=== PATIENT | female | born 1930 | race Caucasian/White ===

== ENCOUNTER 2016-04-30 10:46 | Observation (INO) | payer MEDICARE, MEDICAID ==
[2016-04-30] MEDS ORDERED: NS 1,000 ML IV ONE ×3 (11:00→13:26)
[2016-04-30] MEDS ORDERED: ONDANSETRON HCL 4 MG/2 ML VIAL IV ONE (11:00)
[2016-04-30] MEDS ORDERED: Pharmacy Review for Metformin - IV Contrast Given SCH (11:00)
--- NOTE | 2016-04-30 11:03 | EDPRACDOC ---
- General Information Chief Complaint: Abdominal Pain Stated Complaint: ABD. PAIN Time Seen by Provider: 04/30/16 10:57 Home Medications: Home Medications Furosemide [Lasix] 80 mg PO BID 03/13/12 Glipizide Xl [Glucotrol Xl] 2.5 mg PO DAILY 03/13/12 Metoprolol Tartrate [Lopressor] 12.5 mg PO BID 03/13/12 Dexlansoprazole [Dexilant] 60 mg PO DAILY 03/12/13 POTASSIUM CHLORIDE Tablet [K-DUR 20 mEq Tablet*] 20 meq PO DAILY 11/09/13 Pravastatin [Pravachol] 20 mg PO HS 05/16/14 Cyanocobalamin (Vitamin B-12) [Vitamin B-12] 1,500 mcg PO DAILY 08/04/14 [place]-3 Fatty Acids/Fish Oil [Fish Oil 300 mg Softgel] 1,200 mg PO BID 08/04/14 Pregabalin [Lyrica] 300 mg PO QHS 05/09/15 Calcium Carb & Cit/Vitamin D3 [Calcium + D3 ER Tab (600mg/500IU)] 2 tab PO DAILY 05/15/15 Nitroglycerin [Nitrostat] 0.4 mg SL Q5MX3 PRN 05/15/15 Aspirin 325 mg PO DAILY 06/23/15 Levothyroxine [Synthroid, Levoxyl] 88 mcg PO DAILY 02/04/16 Ciprofloxacin HCl [Cipro] 500 mg PO BID #20 tab 04/26/16 Hydrocodone Bit/Acetaminophen [Hydrocodon-Acetaminophen 5-325] 1 tab PO Q6H PRN #14 tab 04/26/16 Ibuprofen 200 - 400 mg PO .PRN PRN 04/26/16 Benzonatate [Tessalon Perle] 100 mg PO Q8H PRN 04/28/16 Calcium Carb/Mag Ox/Zinc Sulf [Fwteixh-Gjlitnlox-Sdzz Tablet] 1 tab PO DAILY Digoxin [Lanoxin, Digitek] 0.0625 mg PO DAILY 04/28/16 Olopatadine HCl [Patanol] 2 drops OU BID #5 ml 04/28/16 Allergies/Adverse Reactions: Allergies Allergy/AdvReac Type Severity Reaction Status Date / Time Penicillins Allergy Severe RASH Verified 04/28/16 13:39 - History of Present Illness HPI: PATIENT HAS BEEN DIAGNOSED WITH CHRONIC ABDOMINAL PAIN. PATIENT HAS BEEN SEEN IN THE ER X2 FOR THE SAME PAIN. NEIGHBORS STATE PATIENT HAS HAD NAUSEA AND VOMITING AND FATIGUE OVER LAST 2 DAYS. PATIENT RECENTLY DIAGNOSED WITH UTI AND PLACED ON ANTIBIOTICS. Pain Location: Reports: LUQ, LLQ Pain Context: Reports: Spontaneous Pain Severity: Mild Pain Quality: Reports: Aching Pain Radiation: Reports: No Radiation Female Associated Signs & Symptoms: Reports: Nausea, Vomiting. Denies: Diarrhea Oral Intake: Normal Urinary Output: Normal - Treatment Prior to ED Arrival Reported Medications/Treatment [facility] Treatment BLS IV No Comment cbg 100 ED Past Medical History - History Reviewed Yes Nurses notes reviewed and agree except as marked Travel Outside of [place] in the Last 3 Months?: No - Patient Medical History Cardiac History: Reports: Atrial Fibrillation, Hypertension, Congestive Heart Failure, Hypercholesterolemia, Pacemaker Respiratory History: Reports: Pneumonia, Pulmonary Embolism (in past) GI/ History: Reports: Gastroesophageal Reflux Musculoskeletal History: Reports: Arthritis, Rheumatoid Arthritis Psychological History: Reports: Anxiety. Denies: Depression, Substance Use Disorder Systemic History: Reports: Cancer (CERVICAL), Diabetes Surgical History: Reports: Cholecystectomy, Hysterectomy, Tonsillectomy/ Adnoidectomy, Other (IVC filter) - Family Medical History Reports: Hypertension (sister), Diabetes (father), Cancer (son), Cardiac Disorders (mother). Denies: Stroke - Social Medical History Smoking Status: Never smoker Social History: Denies: Substance Use Disorder Lives With: Alone Lives In: Home EDM Review of Systems - Review of Systems ROS Negative Except as Marked: Yes All systems reviewed and were negative except as marked Constitutional: No Symptoms Reported. negative: Fever, Chills, Weakness, Fatigue, Loss of Appetite Eyes: No Symptoms Reported. negative: Redness, Blurred Vision, Double Vision, Discharge, Pain, Light Sensitive, Photophobia Ears: No Symptoms Reported. negative: Pain, Hearing Loss, Drainage, Ear Pulling Throat: No Symptoms Reported. negative: Pain, Swelling Nose: No Symptoms Reported. negative: Congestion, Bleeding, Discharge, Injection, Swelling, Deformity, Ecchymosis, Tender, Abrasion, Laceration Mouth: No Symptoms Reported. negative: Pain, Drooling Respiratory: No Symptoms Reported. negative: Cough, Brassy Cough, Barky Cough, Shortness of Breath, Wheezing, Hemoptysis Cardiovascular: No Symptoms Reported. negative: Chest Pain, Palpitations, Syncope, Edema, Orthopnea, PND, Skin Mottling, Cyanosis Gastrointestinal: Nausea, Pain, Vomiting. negative: Constipation, Diarrhea, Formula Intolerance, Melena Genitourinary: No Symptoms Reported. negative: Dysuria, Hematuria, Frequency, Discharge, Bleeding, Testicular Pain, Neurological: No Symptoms Reported. negative: Headache, Dizziness, Seizure, Numbness, Weakness, Speech Difficulty, Gait Difficulty Musculoskeletal: No Symptoms Reported. negative: Neck, Chestwall, Ribs, Back, Shoulder, Arm, Elbow, Forearm, Wrist, Hand, Pelvis, Hip, Femur, Knee, Leg, Ankle , Foot Integumentary: No Symptoms Reported. negative: Itching, Rash, Bruising, Wound Allergic/Immunologic: No Symptoms Reported. negative: Hives, Itching Hematologic: No Symptoms Reported. negative: Lymphadenopathy, Easy Bruising, Easy Bleeding Endocrine: No Symptoms Reported. negative: Weight Gain, Weight Loss Psychiatric: No Symptoms Reported. negative: Anxiety, Depression, Hallucinations, Insomnia, Suicidal - Physical Exam Constitutional: Alert (Awake), Distress (MILD) Oriented to: Time, Person, Place Last recorded Vital Signs: Last Vital Signs Temp 98.2 F 04/30/16 11:07 Pulse 73 04/30/16 11:07 Resp 18 04/30/16 11:13 BP 139/81 04/30/16 11:07 Pulse Ox 94 04/30/16 11:07 Oxygen Pulse Oxygen Saturation 94 O2 Device Room Air Oxygen Flow Rate Fraction of Inspired Oxygen ( FIO2) - HEENT Head: Normal ( normocephalic) Eye Exam: Normal (PERRL, EOMI, Sclera white) Oropharynx: Normal (Pharynx:Moist without exudate,Gums-no swelling) Tympanic Membrane: Normal ENT EAC: Normal TMJ: Normal Nose: No Symptoms Reported (septum midline) Neck: Normal (FROM, trachea at midline) - Respiratory/Cardiovascular Respiratory: Normal - CTA (BBS clear to auscultation without adventitious sounds ) Cardiovascular: Normal (RRR without murmur, gallop or rub) Respiratory/Cardiovascular Comment: TENDER LEFT CHEST WALL - GI Auscultation: Normal (NABS) Palpation: Normal (Soft,No rebound or guarding, non distended) Tenderness: LUQ August's Sign: Negative - Bladder: Normal - Musculoskeletal Back: Normal (Non-Tender) Extremities: Normal (Normal tone, Pulses 2+ No cyanosis or edema, FROM) - Integumentary Skin: Normal, Warm, Dry Lymphatics: Normal (no adenopathy) - Neurologic Memory Impaired: Normal Motor Function: Normal (Normal tone, Pulses 2+ No cyanosis or edema, FROM) Cranial Nerve: Normal (CN II-X11 intact sensation, strength 5/5) Cerebellar: Normal Mood Description: Normal Perception: Normal - Results 04/30/16 11:22 04/30/16 11:22 WBC 4.8 xk/uL (3.8-10.8) 04/30/16 11:22 RBC 4.38 xM/uL (4.20-5.40) 04/30/16 11:22 Hgb 12.1 g/dL (12.0-16.0) 04/30/16 11:22 Hct 36.3 % (36-47) 04/30/16 11:22 MCV 83 fL (81-99) 04/30/16 11:22 MCH 27.7 pg (27-32) 04/30/16 11:22 MCHC 33.4 g/dl (33-36) 04/30/16 11:22 RDW 15.7 % (11.5-14.5) H 04/30/16 11:22 Plt Count 180 xk/uL (130-400) 04/30/16 11:22 MPV 8.6 fL (7.4-10.4) 04/30/16 11:22 Neut % (Auto) 72.7 % (45-76) 04/30/16 11:22 Lymph % (Auto) 16.6 % (17-44) L 04/30/16 11:22 [place] % (Auto) 8.7 % (3-10) 04/30/16 11:22 Eos % (Auto) 0.9 % (0-5) 04/30/16 11:22 Baso % (Auto) 1.1 % (0-2) 04/30/16 11:22 Absolute Neuts (auto) 3.46 xk/uL (1.7-8.2) 04/30/16 11:22 Absolute Lymphs (auto) 0.77 xk/uL (0.65-4.75) 04/30/16 11:22 Sodium 147 mEq/L (137-146) H 04/30/16 11:22 Potassium 3.5 mEq/L (3.5-5.1) 04/30/16 11:22 Chloride 113 mEq/L (98-107) H 04/30/16 11:22 Carbon Dioxide 21 mMOL/L (22-33) L 04/30/16 11:22 Anion Gap 17 mEq/L (8-16) H 04/30/16 11:22 BUN 16 MG/DL (7-17) 04/30/16 11:22 Creatinine 0.70 MG/DL (0.52-1.04) 04/30/16 11:22 Estimated GFR (MDRD) > 60 mL/min (>=60) 04/30/16 11:22 Glucose 116 MG/DL (70-99) H 04/30/16 11:22 Calculated Osmolality 284 MOs/Kg (270-290) 04/30/16 11:22 Calcium 9.2 MG/DL (8.4-10.2) 04/30/16 11:22 Corrected Calcium 9.6 MG/DL (8.4-10.2) 04/30/16 11:22 Total Bilirubin 1.1 MG/DL (0.2-1.3) 04/30/16 11:22 AST 40 IU/L (14-36) H 04/30/16 11:22 ALT 33 IU/L (9-52) 04/30/16 11:22 Alkaline Phosphatase 97 IU/L (55-165) 04/30/16 11:22 Total Protein 6.9 G/DL (6.3-8.2) 04/30/16 11:22 Albumin 3.6 G/DL (3.5-5.0) 04/30/16 11:22 Lipase 136 U/L (23-300) 04/30/16 11:22 Urine Color Yellow 04/30/16 11:10 Urine Clarity Clear 04/30/16 11:10 Urine pH 7.0 (5.0-8.0) 04/30/16 11:10 Ur Specific [place] 1.005 (1.003-1.035) 04/30/16 11:10 Urine Protein 1+ (NEG/TRACE) H 04/30/16 11:10 Urine Glucose (UA) Neg (NEGATIVE) 04/30/16 11:10 Urine Ketones 1+ (NEGATIVE) H 04/30/16 11:10 Urine Occult Blood Neg (NEG/TRACE) 04/30/16 11:10 Urine Nitrite Neg (NEGATIVE) 04/30/16 11:10 Urine Bilirubin Neg (NEGATIVE) 04/30/16 11:10 Urine Urobilinogen 8 MG/DL (0-1) H 04/30/16 11:10 Ur Leukocyte Esterase Neg (NEGATIVE) 04/30/16 11:10 Urine RBC 0-2 (0-5) 04/30/16 11:10 Urine WBC 0-2 (0-5) 04/30/16 11:10 Ur Epithelial Cells Occ 04/30/16 11:10 Urine Bacteria Few (NEG/FEW) 04/30/16 11:10 Urine Mucus Sm amt (NEG/OCC) 04/30/16 11:10 Digoxin 0.50 NG/ML (0.8-2.00) L 04/30/16 11:22 Microbiology 04/30/16 11:39 Influenza Type A Antigen Screen - Final N/P - Naso/Pharyngeal NEGATIVE Please note: A NEGATIVE result does not exclude an influenza virus infection. It is a presumptive result and, if required, confirmation should be done using either a virus culture or an FDA-cleared influenza A&B molecular assay. ("NORMAL" value = "NEGATIVE".) Influenza Type B Antigen Screen - Final NEGATIVE Please note: A NEGATIVE result does not exclude an influenza virus infection. It is a presumptive result and, if required, confirmation should be done using either a virus culture or an FDA-cleared influenza A&B molecular assay. ("NORMAL" value = "NEGATIVE".) Lab Results 04/30/16 04/30/16 04/30/16 11:22 11:22 11:22 WBC 4.8 RBC 4.38 Hgb 12.1 Hct 36.3 MCV 83 MCH 27.7 MCHC 33.4 RDW 15.7 H Plt Count 180 MPV 8.6 Neut % (Auto) 72.7 Lymph % (Auto) 16.6 L [place] % (Auto) 8.7 Eos % (Auto) 0.9 Baso % (Auto) 1.1 Absolute Neuts (auto) 3.46 Absolute Lymphs (auto) 0.77 Sodium 147 H Potassium 3.5 Chloride 113 H Carbon Dioxide 21 L Anion Gap 17 H BUN 16 Creatinine 0.70 Estimated GFR (MDRD) > 60 Glucose 116 H Calculated Osmolality 284 Calcium 9.2 Corrected Calcium 9.6 Total Bilirubin 1.1 AST 40 H ALT 33 Alkaline Phosphatase 97 Total Protein 6.9 Albumin 3.6 Lipase 136 Urine Color Urine Clarity Urine pH Ur Specific [place] Urine Protein Urine Glucose (UA) Urine Ketones Urine Occult Blood Urine Nitrite Urine Bilirubin Urine Urobilinogen Ur Leukocyte Esterase Urine RBC Urine WBC Ur Epithelial Cells Urine Bacteria Urine Mucus Digoxin 0.50 L 04/30/16 11:10 WBC RBC Hgb Hct MCV MCH MCHC RDW Plt Count MPV Neut % (Auto) Lymph % (Auto) [place] % (Auto) Eos % (Auto) Baso % (Auto) Absolute Neuts (auto) Absolute Lymphs (auto) Sodium Potassium Chloride Carbon Dioxide Anion Gap BUN Creatinine Estimated GFR (MDRD) Glucose Calculated Osmolality Calcium Corrected Calcium Total Bilirubin AST ALT Alkaline Phosphatase Total Protein Albumin Lipase Urine Color Yellow Urine Clarity Clear Urine pH 7.0 Ur Specific [place] 1.005 Urine Protein 1+ H Urine Glucose (UA) Neg Urine Ketones 1+ H Urine Occult Blood Neg Urine Nitrite Neg Urine Bilirubin Neg Urine Urobilinogen 8 H Ur Leukocyte Esterase Neg Urine RBC 0-2 Urine WBC 0-2 Ur Epithelial Cells Occ Urine Bacteria Few Urine Mucus Sm amt Digoxin - Departure Yes I personally saw and evaluated the patient. Disposition: Admit IP To This Hospital Condition: Fair Final Diagnosis: Failure of outpatient treatment Nausea & vomiting Qualifiers: Vomiting type: unspecified Vomiting Intractability: intractable Qualified Code( s): R11.2 - Nausea with vomiting, unspecified Instructions: Acute Abdominal Pain (ED), Acute Nausea and Vomiting (ED) Education/Counseling Given To: Patient, Family Member Education/Counseling Given Regarding: Diagnosis, Treatment, Prognosis Decision to Admit Time: 13:05 Decision to admit date: 04/30/16 Decision to admit: from ED - Physician Consulted Hospitalist Time Called: 13:06 Provider Called: Michael Zhang Time Pricing Coordinator Returned Call: 13:06
[2016-04-30 11:28] LABS: LEUKOCYTES/URINE NEG (NEGATIVE); NITRITE/URINE NEG (NEGATIVE); RBC/URINE 0-2 (0-5); URINE OCCULT BLOOD NEG (NEG/TRACE); WBC/URINE 0-2 (0-5)
[2016-04-30 11:29] LABS: AUTOMATED BASOPHIL 1.1 % (0-2); AUTOMATED EOSINOPHIL 0.9 % (0-5); AUTOMATED LYMPH 16.6 % (17-44); AUTOMATED MONOCYTE 8.7 % (3-10); AUTOMATED NEUTROPHIL 72.7 % (45-76); MPV 8.6 fL (7.4-10.4)
[2016-04-30 11:38] LABS: BLOOD UREA NITROGEN 16 MG/DL (7-17); CALC CORRECTED 9.6 MG/DL (8.4-10.2); CALCIUM 9.2 MG/DL (8.4-10.2); CALCULATED OSMOLALITY 284 MOs/Kg (270-290); CHLORIDE 113 mEq/L (98-107); GLUCOSE 116 MG/DL (70-99); SODIUM LEVEL 147 mEq/L (137-146); TOTAL PROTEIN 6.9 G/DL (6.3-8.2)
--- NOTE | 2016-04-30 12:20 | DIRPT ---
CLINICAL DATA: 86-year-old female with left chest and rib pain. Initial encounter. EXAM: LEFT RIBS AND CHEST - 3+ VIEW COMPARISON: 04/28/2016 and prior exams FINDINGS: Cardiomegaly and left-sided pacemaker again noted. There is no evidence of focal airspace disease, pulmonary edema, suspicious pulmonary nodule/mass, pleural effusion, or pneumothorax. No acute bony abnormalities are identified. There is no evidence of acute left rib fracture or lesion. IMPRESSION: Cardiomegaly without acute abnormality. Electronically Signed By: Ruddy Nielsen M.D. On: 04/30/2016 12:18
--- NOTE | 2016-04-30 12:48 | DIRPT ---
CLINICAL DATA: Chronic abdominal pain with nausea and vomiting. EXAM: CT ABDOMEN WITH CONTRAST TECHNIQUE: Multidetector CT imaging of the abdomen was performed using the standard protocol following bolus administration of intravenous contrast. CONTRAST: 100 cc Isovue 370 COMPARISON: 04/26/2016 FINDINGS: Lower chest: Unremarkable. Hepatobiliary: No focal abnormality within the liver parenchyma. Gallbladder is surgically absent. No intrahepatic or extrahepatic biliary dilation. Pancreas: No focal mass lesion. No dilatation of the main duct. No intraparenchymal cyst. No peripancreatic edema. Spleen: No splenomegaly. No focal mass lesion. Adrenals/Urinary Tract: No adrenal nodule or mass. Tiny cyst upper pole left kidney. Kidneys otherwise unremarkable. Stomach/Bowel: Stomach is nondistended. No gastric wall thickening. No evidence of outlet obstruction. Duodenum is normally positioned as is the ligament of Treitz. Visualized small bowel is unremarkable. Midline ventral hernia described on the previous study not visualized in its entirety today. Vascular/Lymphatic: There is abdominal aortic atherosclerosis without aneurysm. IVC filter again noted. There is no gastrohepatic or hepatoduodenal ligament lymphadenopathy. No intraperitoneal or retroperitoneal lymphadenopy. Other: No intraperitoneal free fluid. Musculoskeletal: Bone windows reveal no worrisome lytic or sclerotic osseous lesions. IMPRESSION: No acute findings in the abdomen. The anatomic pelvis was not imaged as part of this CT abdomen only study. Tiny cyst upper pole left kidney. Large ventral hernia described previously not included on this study. Abdominal aortic atherosclerosis. Electronically Signed By: Luis Sexton M.D. On: 04/30/2016 12:45
[2016-04-30] MEDS ORDERED: PROMETHAZINE 25 MG/ML VIAL IV ONE (13:06)
[2016-04-30] MEDS ORDERED: BENZONATATE 100 MG PERLES PO PRN ×2 (13:26→13:29)
[2016-04-30] MEDS ORDERED: TEMAZEPAM 15 MG CAP PO PRN (13:26)
[2016-04-30] MEDS ORDERED: DOCUSATE-SENNA CONCENTRATE TAB PO PRN (13:26)
[2016-04-30] MEDS ORDERED: METOCLOPRAMIDE 10 MG/2 ML VIAL IV PRN (13:26)
[2016-04-30] MEDS ORDERED: SIMETHICONE 80 MG TAB PO PRN (13:26)
[2016-04-30] MEDS ORDERED: ACETAMINOPHEN 325 MG/TAB TABLET PO PRN (13:26)
[2016-04-30] MEDS ORDERED: ACETAMINOPHEN 650 MG SUPP PR PRN (13:26)
[2016-04-30] MEDS ORDERED: SODIUM CHLORIDE 0.9% 3 ML FLUSH FLUSH PRN (13:26)
[2016-04-30] MEDS ORDERED: NITROGLYCERINE 0.4 MG TAB SL PRN (13:29)
--- NOTE | 2016-04-30 13:58 | HISTPHYS ---
- Chief Complaint Nausea & vomiting - History of Present Illness Reta Lara is a frail elderly white woman who has had 4 visits to the ED complaining of nausea and vomiting in the past week. She was seen 3 days ago and thought to have a possible UTI and started on Cipro. She returned again today with similar symptoms: nausea, vomiting and dry heaves. Her family states they can not manage this at home any more. All of her labs appear to be within normal limits. Urine culture from 04/26/16 is negative. Blood and urine cultures have been submitted again today. Her RapidFlu test is negative. She will be placed in observation for symptomatic care. - Medical History Cardiac History: Reports: Atrial Fibrillation, Hypertension, Congestive Heart Failure, Hypercholesterolemia, Pacemaker Respiratory History: Reports: Pneumonia, Pulmonary Embolism (in past) GI/ History: Reports: Gastroesophageal Reflux Musculoskeletal History: Reports: Arthritis, Rheumatoid Arthritis Systemic History: Reports: Cancer (CERVICAL), Diabetes Neurological History: Reports: No Significant History Psychological History: Reports: Anxiety. Denies: Depression, Substance Use Disorder - Surgical History Reports: Cholecystectomy, Hysterectomy, Tonsillectomy/Adnoidectomy, Other (IVC filter) - Medictions/Allergies Allergies Penicillins Allergy (Severe, Verified 04/28/16 13:39) RASH Current Medication List: Reviewed Home Medications Furosemide [Lasix] 80 mg PO BID 03/13/12 Glipizide Xl [Glucotrol Xl] 2.5 mg PO DAILY 03/13/12 Metoprolol Tartrate [Lopressor] 12.5 mg PO BID 03/13/12 Dexlansoprazole [Dexilant] 60 mg PO DAILY 03/12/13 POTASSIUM CHLORIDE Tablet [K-DUR 20 mEq Tablet*] 20 meq PO DAILY 11/09/13 Pravastatin [Pravachol] 20 mg PO HS 05/16/14 Cyanocobalamin (Vitamin B-12) [Vitamin B-12] 1,500 mcg PO DAILY 08/04/14 [place]-3 Fatty Acids/Fish Oil [Fish Oil 300 mg Softgel] 1,200 mg PO BID 08/04/14 Pregabalin [Lyrica] 300 mg PO QHS 05/09/15 Calcium Carb & Cit/Vitamin D3 [Calcium + D3 ER Tab (600mg/500IU)] 2 tab PO DAILY 05/15/15 Nitroglycerin [Nitrostat] 0.4 mg SL Q5MX3 PRN 05/15/15 Aspirin 325 mg PO DAILY 06/23/15 Levothyroxine [Synthroid, Levoxyl] 88 mcg PO DAILY 02/04/16 Ciprofloxacin HCl [Cipro] 500 mg PO BID #20 tab 04/26/16 Hydrocodone Bit/Acetaminophen [Hydrocodon-Acetaminophen 5-325] 1 tab PO Q6H PRN #14 tab 04/26/16 Ibuprofen 200 - 400 mg PO .PRN PRN 04/26/16 Benzonatate [Tessalon Perle] 100 mg PO Q8H PRN 04/28/16 Calcium Carb/Mag Ox/Zinc Sulf [Tcttsjs-Sbrkcbvzd-Fazt Tablet] 1 tab PO DAILY Digoxin [Lanoxin, Digitek] 0.0625 mg PO DAILY 04/28/16 Olopatadine HCl [Patanol] 2 drops OU BID #5 ml 04/28/16 - Family History Reports: Hypertension (sister), Diabetes (father), Cancer (son), Cardiac Disorders (mother). Denies: Stroke - Social History Travel Outside of [place] in the Last 3 Months?: No Lives: With Family Smoking Status: Never smoker Social History: Denies: Alcohol Use, Substance Use Disorder - Review of Systems Constitutional: Chills, Diaphoresis, Fatigue, Loss of Appetite, Weakness Ears: No Symptoms Reported Nose: No Symptoms Reported Mouth: Dry Mouth, Poor Dentition Throat/Neck: Hoarseness Respiratory: Cough, Shortness of Breath Cardiovascular: Syncope Gastrointestinal: Nausea, Vomiting, Abdominal Pain (LUQ) Genitourinary: Dysuria, Frequency, Urgency to urinate Neurological: Dizziness, Headache, Weakness Musculoskeletal:: Osteoarthritis, Weakness Integumentary: No Symptoms Reported Allergic/Immunologic: No Symptoms Reported Hematologic: No Symptoms Reported Endocrine: No Symptoms Reported Psychiatric: Depression - Physical Exam Vital Signs: Initial Vitals Temperature 98.2 F 04/30/16 11:07 Pulse Rate 73 04/30/16 11:07 Respiratory Rate 20 04/30/16 11:07 Blood Pressure 139/81 04/30/16 11:07 Pulse Oxygen Saturation 94 04/30/16 11:07 Constitutional: Alert, Cachectic, Other (thin elderly white female, frail) Oriented to: Time, Person, Place - HEENT Head: Normal Eye: Normal (PERRL: EOMI) Oropharynx: Membranes Dry, Other (edentulous) Tympanic Membrane: Dull ENT EAC: negative: Cerumen TMJ: Normal Nose: No Symptoms Reported Respiratory: Normal - CTA, Diminished Cardiovascular: Normal (regular rhythm and rate) - GI Auscultation: Normal Palpation: Normal (soft, nondistended ventral hernia). negative: Enlarged liver , Enlarged spleen, Fluid Wave Tenderness: Non tender August's Sign: Negative Rectal Exam: Normal, Heme negative stool, Rectal Tone (normal) - Musculoskeletal Back: Normal, No Palpable Step-off Extremities: Normal, Calf Tenderness, Clubbing Spine: non-tender, normal alignment, normal inspection - Integumentary Skin: Warm, Dry Lymphatics: Normal - Neurologic Memory Impaired: Normal Motor Function: Normal Cranial Nerve: Normal Cerebellar: Normal Mood Description: Depressed Thought: Coherent Perception: Normal - Focused CV Perfusion Exam Vital Signs: Last Vital Signs Temp 98.0 F 04/30/16 13:28 Pulse 79 04/30/16 13:28 Resp 20 04/30/16 13:28 BP 145/74 04/30/16 13:28 Pulse Ox 94 04/30/16 13:28 - Lab Results Laboratory Tests 04/30/16 04/30/16 04/30/16 11:10 11:22 11:22 WBC 4.8 Hgb 12.1 Hct 36.3 Plt Count 180 Neut % (Auto) 72.7 Lymph % (Auto) 16.6 L [place] % (Auto) 8.7 Sodium 147 H Potassium 3.5 Chloride 113 H Carbon Dioxide 21 L Anion Gap 17 H BUN 16 Creatinine 0.70 Estimated GFR (MDRD) > 60 Glucose 116 H Calculated Osmolality 284 Calcium 9.2 Corrected Calcium 9.6 Total Bilirubin 1.1 AST 40 H ALT 33 Alkaline Phosphatase 97 Total Protein 6.9 Albumin 3.6 Lipase 136 Urine Color Yellow Urine Clarity Clear Urine pH 7.0 Ur Specific [place] 1.005 Urine Protein 1+ H Urine Glucose (UA) Neg Urine Ketones 1+ H Urine Nitrite Neg Urine RBC 0-2 Urine WBC 0-2 Urine Bacteria Few Digoxin 04/30/16 11:22 WBC Hgb Hct Plt Count Neut % (Auto) Lymph % (Auto) [place] % (Auto) Sodium Potassium Chloride Carbon Dioxide Anion Gap BUN Creatinine Estimated GFR (MDRD) Glucose Calculated Osmolality Calcium Corrected Calcium Total Bilirubin AST ALT Alkaline Phosphatase Total Protein Albumin Lipase Urine Color Urine Clarity Urine pH Ur Specific [place] Urine Protein Urine Glucose (UA) Urine Ketones Urine Nitrite Urine RBC Urine WBC Urine Bacteria Digoxin 0.50 L - Diagnostic Findings CT Abd: IMPRESSION: No acute findings in the abdomen. The anatomic pelvis was not imaged as part of this CT abdomen only study. Tiny cyst upper pole left kidney. Large ventral hernia described previously not included on this study. Abdominal aortic atherosclerosis. Electronically Signed By: Luis Sexton M.D. On: 04/30/2016 12:45 CXR: FINDINGS: Cardiomegaly and left-sided pacemaker again noted. There is no evidence of focal airspace disease, pulmonary edema, suspicious pulmonary nodule/mass, pleural effusion, or pneumothorax. No acute bony abnormalities are identified. There is no evidence of acute left rib fracture or lesion. IMPRESSION: Cardiomegaly without acute abnormality. Electronically Signed By: Ruddy Nielsen M.D. On: 04/30/2016 12:18 - Assessment (1) Gastroenteritis K52.9 - NONINFECTIVE GASTROENTERITIS AND COLITIS, UNSPECIFIED Acute Present on Admission: Yes Place patient in observation, give IV fluids, replace potassium losses. Use antiemetics as needed to control nausea and vomiting. (2) Nausea & vomiting R11.2 - NAUSEA WITH VOMITING, UNSPECIFIED Acute Present on Admission: Yes Qualifiers: Vomiting type: unspecified Vomiting Intractability: intractable Qualified Code(s): R11.2 - Nausea with vomiting, unspecified Use antiemetics as needed to control nausea and vomiting. (3) Failure of outpatient treatment Z78.9 - OTHER SPECIFIED HEALTH STATUS Acute Present on Admission: Yes (4) Abdominal pain R10.9 - UNSPECIFIED ABDOMINAL PAIN Acute Present on Admission: Yes Qualifiers: Abdominal location: left upper quadrant Qualified Code(s): R10.12 - Left upper quadrant pain - Plan Re-evaluate in AM. Case Care Discussed with: Patient, Family, Nursing Staff Total Time: 55 min Critical Care: No Couseling Time (>50% in counseling/coordination): No Code: 11805
[2016-04-30 14:38] VITALS: BMI 24.9
[2016-04-30] MEDS: SODIUM CHLORIDE 0.9% 3 ML FLUSH FLUSH SCH (14:56)
[2016-04-30] MEDS ORDERED: Vaccine Screening Complete SCH (15:00)
[2016-04-30] MEDS: ENOXAPARIN 40 MG/0.4 ML PFS SQ SCH (16:56)
[2016-04-30] MEDS ORDERED: NS 1,000 ML IV SCH (17:00)
[2016-04-30] MEDS: ONDANSETRON HCL 4 MG/2 ML VIAL IV PRN (19:11)
[2016-04-30] MEDS ORDERED: PROMETHAZINE 25 MG/ML VIAL IV PRN (20:43)
[2016-04-30] MEDS: D5LR IV SCH (21:14)
[2016-04-30] MEDS: KCL IV SCH (21:14)
[2016-04-30] MEDS: PREGABALIN 100 MG CAP PO SCH (21:14)
[2016-04-30] MEDS: PRAVASTATIN 20 MG TAB PO SCH (21:18)
[2016-05-01] MEDS: METOPROLOL TARTRATE 25 MG TAB PO SCH ×3 (00:42→21:31)
[2016-05-01] MEDS: KCL IV SCH ×3 (05:32→19:59)
[2016-05-01] MEDS: D5LR IV SCH ×3 (05:32→19:59)
[2016-05-01] MEDS: SODIUM CHLORIDE 0.9% 3 ML FLUSH FLUSH SCH ×2 (05:35→11:55)
[2016-05-01 07:09] LABS: MPV 8.7 fL (7.4-10.4)
[2016-05-01 07:26] LABS: BLOOD UREA NITROGEN 13 MG/DL (7-17); CALCIUM 8.5 MG/DL (8.4-10.2); CALCULATED OSMOLALITY 286 MOs/Kg (270-290); CHLORIDE 115 mEq/L (98-107); GLUCOSE 99 MG/DL (70-99); SODIUM LEVEL 149 mEq/L (137-146)
[2016-05-01] MEDS ORDERED: FLU VACCINE (Afluria) 0.5 ML DOSE IM ONE (08:00)
[2016-05-01] MEDS: LEVOTHYROXINE 88 MCG (0.088 MG) TAB PO SCH (10:00)
[2016-05-01] MEDS: ONDANSETRON HCL 4 MG/2 ML VIAL IV PRN (10:02)
[2016-05-01] MEDS: CYANOCOBALAMIN (Vitamin B-12) 500 MCG TABLET PO SCH (11:55)
--- NOTE | 2016-05-01 13:43 | GENMEDPROG ---
Chief Complaint: c/ o nausea, but states it is getting better Currently: Reports: Nausea and Vomiting. Denies: Cough, Wheezing, SOB DVT Prophylaxis: Yes - Physical Examination Vital Signs and I&O: Last Vital Signs Temp 98.0 F 05/01/16 13:38 Pulse 89 05/01/16 13:38 Resp 18 05/01/16 13:38 BP 138/69 05/01/16 13:38 Pulse Ox 95 05/01/16 13:38 Oxygen Pulse Oxygen Saturation 95 O2 Device Room Air Oxygen Flow Rate Fraction of Inspired Oxygen ( FIO2) Intake & Output 04/28/16 04/29/16 04/30/16 05/01/16 23:59 23:59 23:59 23:59 Intake Total 3136 1240 Output Total 600 200 Balance 2536 1040 Patient's weight 67.903 kg 68.629 kg General: Alert, Oriented x3, Mild distress, Weakness HEENT: Normal, PERRLA, EOMI, Anicteric Sclera, Mucous membr. moist/pink, Pallor Neck: Non-tender, Full range of motion, Normal Trachea alignment, Normal inspection Lymphatics: Normal Respiratory: Normal - CTA, Diminished Cardiovascular: Regular rate and rhythm, Normal S1, Normal S2 GI: Normal bowel sounds, Soft, Non tender, No masses Extremities/Musculoskeletal: Normal pulses, DJD, FROM Skin: Warm,Dry and Intact Neurological: Normal speech, Strength at 5/5 X4 ext, Normal tone Psych/Mental Status: Normal Affect, Cooperative, Anxious - Assessment (1) Gastroenteritis Acute K52.9 - NONINFECTIVE GASTROENTERITIS AND COLITIS, UNSPECIFIED Comment/ Plan: Patient in observation, continue IV fluids, replace potassium losses. Use antiemetics as needed to control nausea and vomiting. (2) Nausea & vomiting Acute R11.2 - NAUSEA WITH VOMITING, UNSPECIFIED Qualifiers: Vomiting type: unspecified Vomiting Intractability: intractable Qualified Code(s): R11.2 - Nausea with vomiting, unspecified Comment/Plan: Use antiemetics as needed to control nausea and vomiting. (3) Failure of outpatient treatment Acute Z78.9 - OTHER SPECIFIED HEALTH STATUS (4) Abdominal pain Resolved R10.9 - UNSPECIFIED ABDOMINAL PAIN Qualifiers: Abdominal location: left upper quadrant Qualified Code(s): R10.12 - Left upper quadrant pain Comment/Plan: No evidence of fractured ribs or splenic infarct. No pneumonia seen on CT or CXR. Patient is tender over lowest left ant. ribs. Case Care Discussed with: Patient, Family, Nursing Staff Education/Counseling Given To: Patient Education/Counseling Given Regarding: Diagnosis, Treatment, Prognosis Critical Care: No Couseling Time (>50% in counseling/coordination): No Code: Other
[2016-05-01] MEDS: ENOXAPARIN 40 MG/0.4 ML PFS SQ SCH (17:19)
[2016-05-01] MEDS: PREGABALIN 100 MG CAP PO SCH (21:31)
[2016-05-01] MEDS: PRAVASTATIN 20 MG TAB PO SCH (21:31)
[2016-05-02] MEDS: KCL IV SCH ×3 (05:29→11:10)
[2016-05-02] MEDS: D5LR IV SCH ×3 (05:29→11:10)
[2016-05-02] MEDS: SODIUM CHLORIDE 0.9% 3 ML FLUSH FLUSH SCH (05:29)
[2016-05-02 06:27] VITALS: BP 130/65; PULSE 74; TEMP 99.3
[2016-05-02] MEDS ORDERED: FLU VACCINE (Afluria) 0.5 ML DOSE IM ONE (08:00)
--- NOTE | 2016-05-02 08:33 | PCM.DCS92 ---
- Final/Secondary Discharge Diagnosis (1) Gastroenteritis Acute K52.9 - NONINFECTIVE GASTROENTERITIS AND COLITIS, UNSPECIFIED Present on Admission: Yes Comment: Patient in observation, given IV fluids, replaced potassium losses. Received antiemetics as needed to control nausea and vomiting. Feeling better now and tolerating diet. (2) Nausea & vomiting Resolved R11.2 - NAUSEA WITH VOMITING, UNSPECIFIED Present on Admission: Yes unspecified non-intractable R11.2 - Nausea with vomiting, unspecified Comment: Use antiemetics as needed to control nausea and vomiting. (3) Failure of outpatient treatment Acute Z78.9 - OTHER SPECIFIED HEALTH STATUS Present on Admission: Yes (4) Abdominal pain Resolved R10.9 - UNSPECIFIED ABDOMINAL PAIN Present on Admission: Yes left upper quadrant R10.12 - Left upper quadrant pain Comment: No evidence of fractured ribs or splenic infarct. No pneumonia seen on CT or CXR. Patient is tender over lowest left ant. ribs. Discharge Disposition: Home Discharge Condition: Improved Cognitive Discharge Status: Unimpaired Fuctional Discharge Status: Independent Physician Follow up/Referrals: Anabel Tanner MD [Primary Care Provider] - One Week O2 Device: Room Air Diet at Discharge: Heart Healthy Activity: As Tolerated Call Office For: Worsening Symptoms Discontinue use of:: Alcohol, All Types of Tobacco - DC Summary Notes Hospital Course Note:: Discharge summary on patient named BOOGIE LARA admitted to [facility] on 04/30/16 by Teresa Montes MD. Date of discharge is [08/13]. Boogie Lara is a frail elderly white woman who has had 4 visits to the ED complaining of nausea and vomiting in the past week. She was seen 3 days ago and thought to have a possible UTI and started on Cipro. She returned again today with similar symptoms: nausea, vomiting and dry heaves. Her family states they can not manage this at home any more. All of her labs appear to be within normal limits. Urine culture from 04/26/16 is negative. Blood and urine cultures have been submitted again today. Her RapidFlu test is negative. She will be placed in observation for symptomatic care. Patient was placed in observation, given IV fluids, and replaced potassium losses. Received antiemetics as needed to control nausea and vomiting. She is feeling better now and tolerating diet. She will be discharged home, to follow- up with her primary care provider in 1 week. Code: 43786 - Physical Exam Vital Signs: Last Vital Signs Temp 99.3 F 05/02/16 06:00 Pulse 74 05/02/16 06:00 Resp 18 05/02/16 06:00 BP 130/65 05/02/16 06:00 Pulse Ox 93 05/02/16 06:00 Oxygen Pulse Oxygen Saturation 93 O2 Device Room Air Oxygen Flow Rate Fraction of Inspired Oxygen ( FIO2) Constitutional: No apparent distress, Alert, Cachectic, Other (thin elderly white female, frail) Oriented to: Time, Person, Place - HEENT Head: Normal Eye: Normal (PERRL: EOMI) Oropharynx: Normal, Other (edentulous) Tympanic Membrane: Dull ENT EAC: negative: Cerumen TMJ: Normal Nose: No Symptoms Reported - Respiratory/Cardiovascular Respiratory: Normal - CTA, Diminished Cardiovascular: Normal - GI Auscultation: Normal Palpation: Normal (soft, nondistended ventral hernia). negative: Enlarged liver , Enlarged spleen, Fluid Wave Tenderness: Non tender August's Sign: Negative Rectal Exam: Normal, Heme negative stool, Rectal Tone (normal) - Musculoskeletal Back: Normal, No Palpable Step-off Extremities: Normal, Calf Tenderness, Clubbing - Integumentary Skin: Warm, Dry Lymphatics: Normal - Neurologic Memory Impaired: Normal Motor Function: Normal Cranial Nerve: Normal Cerebellar: Normal Mood Description: Depressed Thought: Coherent Perception: Normal
[2016-05-02] MEDS: METOPROLOL TARTRATE 25 MG TAB PO SCH (08:38)
[2016-05-02] MEDS: LEVOTHYROXINE 88 MCG (0.088 MG) TAB PO SCH (08:40)
[2016-05-02] MEDS: CYANOCOBALAMIN (Vitamin B-12) 500 MCG TABLET PO SCH (11:10)
== END 2016-05-02 12:00 | disposition home health service (06) ==
LOC: ED 10:46 → MPS3 13:26
PROVIDERS: ADMIT Family Medicine; ATTEND Family Medicine
DX: K52.9 Noninfective gastroenteritis and colitis, unspecified (principal); Z78.9 Other specified health status; R10.9 Unspecified abdominal pain
CPT/HCPCS: 71101; 74160; 80048; 80053; 80162; 81001; 83690; 85025; 85027; 87040; 87086; 87804; 93005; 96372; 99284; A9270; A9698; G0378; J1650; J2405; J2550; 90656; J3490

== ENCOUNTER 2016-05-06 13:55 | Emergency (ER) | payer MEDICARE, MEDICAID ==
[2016-05-06 14:16] VITALS: TEMP 97.8; BMI 25.4
[2016-05-06] MEDS ORDERED: SODIUM CHLORIDE 0.9% 10 ML FLUSH FLUSH PRN (14:27)
[2016-05-06 15:13] LABS: AUTOMATED BASOPHIL 2.6 % (0-2); AUTOMATED EOSINOPHIL 0.7 % (0-5); AUTOMATED NEUTROPHIL 65.7 % (45-76); MPV 8.7 fL (7.4-10.4)
[2016-05-06 15:14] LABS: BLOOD UREA NITROGEN 14 MG/DL (7-17); CALC CORRECTED 9.4 MG/DL (8.4-10.2); CALCIUM 9.1 MG/DL (8.4-10.2); CALCULATED OSMOLALITY 274 MOs/Kg (270-290); CHLORIDE 103 mEq/L (98-107); GLUCOSE 93 MG/DL (70-99); SODIUM LEVEL 142 mEq/L (137-146); TOTAL PROTEIN 7.6 G/DL (6.3-8.2)
[2016-05-06 15:18] LABS: ALLEN'S TEST PASS; BEb 2.8 (+/- 2); TCO2 24.2 MMOL/L (23-27)
[2016-05-06 15:19] LABS: PARTIAL THROMB. TIME 26.1 SEC (22-35); PT-INR 1.1
[2016-05-06 15:19] LABS: ABG Draw Site Right Radial; ABG Draw Tech SI
--- NOTE | 2016-05-06 15:28 | DIRPT ---
CLINICAL DATA: Chest pain and shortness of breath for 1 day EXAM: PORTABLE CHEST 1 VIEW COMPARISON: 04/30/2016 FINDINGS: Stable mild cardiac enlargement. Stable cardiac pacer. The vascular pattern is normal and the lungs are clear. No pleural effusion or pneumothorax. IMPRESSION: No active disease. Electronically Signed By: Ryder Cardenas M.D. On: 05/06/2016 15:25
--- NOTE | 2016-05-06 15:39 | EDPRACDOC ---
- General Information Chief Complaint: Dyspnea/Resp distress Stated Complaint: RESP Time Seen by Provider: 05/06/16 14:11 Information Source: Patient, Injection Moulding Machine Operator Mode Of Arrival: Ambulance Home Medications: Home Medications Furosemide [Lasix] 80 mg PO BID 03/13/12 Glipizide Xl [Glucotrol Xl] 2.5 mg PO DAILY 03/13/12 Metoprolol Tartrate [Lopressor] 12.5 mg PO BID 03/13/12 Dexlansoprazole [Dexilant] 60 mg PO DAILY 03/12/13 POTASSIUM CHLORIDE Tablet [K-DUR 20 mEq Tablet*] 20 meq PO DAILY 11/09/13 Pravastatin [Pravachol] 20 mg PO HS 05/16/14 Cyanocobalamin (Vitamin B-12) [Vitamin B-12] 1,500 mcg PO DAILY 08/04/14 [place]-3 Fatty Acids/Fish Oil [Fish Oil 300 mg Softgel] 1,200 mg PO BID 08/04/14 Pregabalin [Lyrica] 300 mg PO QHS 05/09/15 Calcium Carb & Cit/Vitamin D3 [Calcium + D3 ER Tab (600mg/500IU)] 2 tab PO DAILY 05/15/15 Nitroglycerin [Nitrostat] 0.4 mg SL Q5MX3 PRN 05/15/15 Aspirin 325 mg PO DAILY 06/23/15 Levothyroxine [Synthroid, Levoxyl] 88 mcg PO DAILY 02/04/16 Ciprofloxacin HCl [Cipro] 500 mg PO BID #20 tab 04/26/16 Hydrocodone Bit/Acetaminophen [Hydrocodon-Acetaminophen 5-325] 1 tab PO Q6H PRN #14 tab 04/26/16 Ibuprofen 200 - 400 mg PO .PRN PRN 04/26/16 Benzonatate [Tessalon Perle] 100 mg PO Q8H PRN 04/28/16 Calcium Carb/Mag Ox/Zinc Sulf [Ywvrtsp-Fwidplyvc-Btgq Tablet] 1 tab PO DAILY Digoxin [Lanoxin, Digitek] 0.0625 mg PO DAILY 04/28/16 Olopatadine HCl [Patanol] 2 drops OU BID #5 ml 04/28/16 Ondansetron HCl [Zofran] 4 mg PO Q6H PRN #20 tab 05/06/16 Allergies/Adverse Reactions: Allergies Allergy/AdvReac Type Severity Reaction Status Date / Time Penicillins Allergy Severe RASH Verified 04/28/16 13:39 - History of Present Illness Onset: ONGOING HPI: PT PRESENTS TODAY WITH COUGH/CONGESTION AND REPORTED N/V AT HOME. PT RECENTLY ADMITTED FOR SAME. PT POOR HISTORIAN, BUT STATES TO ME SEVERAL TIMES THAT SHE "NEEDS MY PACEMAKER REPLACED". NO APPARENT DISTRESS. 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 Denies: Depression, Substance Use Disorder Systemic History: Reports: Cancer (CERVICAL), Diabetes Surgical History: Reports: Cholecystectomy, Hysterectomy, Tonsillectomy/ Adnoidectomy, Other (IVC filter) - Family Medical History Reports: Hypertension (sister), Diabetes (father), Cancer (son), Cardiac Disorders (mother). Denies: Stroke - Social Medical History Smoking Status: Never smoker Social History: Denies: Substance Use Disorder EDM Review of Systems - Review of Systems ROS Negative Except as Marked: Yes All systems reviewed and were negative except as marked Constitutional: Weakness Respiratory: Cough Cardiovascular: No Symptoms Reported Gastrointestinal: Nausea, Vomiting Neurological: No Symptoms Reported Musculoskeletal: No Symptoms Reported Integumentary: No Symptoms Reported - Physical Exam Constitutional: Alert (Awake), No apparent distress Oriented to: Time, Person, Place Last recorded Vital Signs: Last Vital Signs Temp 97.8 F 05/06/16 14:05 Pulse 82 05/06/16 14:05 Resp 28 H 05/06/16 14:05 BP 119/60 05/06/16 14:05 Pulse Ox 93 05/06/16 14:05 Oxygen Pulse Oxygen Saturation 93 O2 Device Room Air Oxygen Flow Rate Fraction of Inspired Oxygen ( FIO2) - HEENT Head: Normal Eye Exam: Normal Neck: Normal, Denies Pain, Midline - Respiratory/Cardiovascular Respiratory: Normal - CTA Cardiovascular: Normal - GI Palpation: Normal Tenderness: Non tender - Musculoskeletal Back: Normal Extremities: Normal - Integumentary Skin: Normal Lymphatics: Normal - Neurologic Cerebellar: Normal Mood Description: Normal Thought: Coherent Perception: Normal ED SOB MDM - Results Result Diagrams: 05/06/16 14:54 05/06/16 14:54 Results: WBC 6.4 xk/uL (3.8-10.8) 05/06/16 14:54 RBC 4.88 xM/uL (4.20-5.40) 05/06/16 14:54 Hgb 13.5 g/dL (12.0-16.0) D 05/06/16 14:54 Hct 40.0 % (36-47) 05/06/16 14:54 MCV 82 fL (81-99) 05/06/16 14:54 MCH 27.6 pg (27-32) 05/06/16 14:54 MCHC 33.7 g/dl (33-36) 05/06/16 14:54 RDW 16.2 % (11.5-14.5) H 05/06/16 14:54 Plt Count 273 xk/uL (130-400) 05/06/16 14:54 MPV 8.7 fL (7.4-10.4) 05/06/16 14:54 Neut % (Auto) 65.7 % (45-76) 05/06/16 14:54 Lymph % (Auto) 21.0 % (17-44) 05/06/16 14:54 [place] % (Auto) 10.0 % (3-10) 05/06/16 14:54 Eos % (Auto) 0.7 % (0-5) 05/06/16 14:54 Baso % (Auto) 2.6 % (0-2) H 05/06/16 14:54 Absolute Neuts (auto) 4.16 xk/uL (1.7-8.2) 05/06/16 14:54 Absolute Lymphs (auto) 1.34 xk/uL (0.65-4.75) 05/06/16 14:54 PT 11.5 SEC (9.2-11.2) H 05/06/16 14:54 INR 1.1 05/06/16 14:54 APTT 26.1 SEC (22-35) 05/06/16 14:54 Puncture Site Right radial 05/06/16 15:12 pH 7.580 pH UNITS (7.35-7.45) H 05/06/16 15:12 pCO2 25.0 mmHg (35-45) L 05/06/16 15:12 pO2 79.0 mmHg (80-100) L 05/06/16 15:12 HCO3 23.4 MMOL/L (22-26) 05/06/16 15:12 Total CO2 24.2 MMOL/L (23-27) 05/06/16 15:12 Base Excess 2.8 (+/- 2) H 05/06/16 15:12 FiO2 % 21% 05/06/16 15:12 Specimen Drawn By Si 05/06/16 15:12 Sodium 142 mEq/L (137-146) 05/06/16 14:54 Potassium 3.6 mEq/L (3.5-5.1) 05/06/16 14:54 Chloride 103 mEq/L (98-107) 05/06/16 14:54 Carbon Dioxide 25 mMOL/L (22-33) 05/06/16 14:54 Anion Gap 18 mEq/L (8-16) H 05/06/16 14:54 BUN 14 MG/DL (7-17) 05/06/16 14:54 Creatinine 0.90 MG/DL (0.52-1.04) 05/06/16 14:54 Estimated GFR (MDRD) 59 mL/min (>=60) L 05/06/16 14:54 Glucose 93 MG/DL (70-99) 05/06/16 14:54 Calculated Osmolality 274 MOs/Kg (270-290) 05/06/16 14:54 Calcium 9.1 MG/DL (8.4-10.2) 05/06/16 14:54 Corrected Calcium 9.4 MG/DL (8.4-10.2) 05/06/16 14:54 Total Bilirubin 1.0 MG/DL (0.2-1.3) 05/06/16 14:54 AST 28 IU/L (14-36) 05/06/16 14:54 ALT 21 IU/L (9-52) 05/06/16 14:54 Alkaline Phosphatase 107 IU/L (55-165) 05/06/16 14:54 Troponin I < 0.01 ng/mL (<.04) 05/06/16 14:54 Total Protein 7.6 G/DL (6.3-8.2) 05/06/16 14:54 Albumin 3.7 G/DL (3.5-5.0) 05/06/16 14:54 Lab Results 05/06/16 05/06/16 05/06/16 15:12 14:54 14:54 WBC 6.4 RBC 4.88 Hgb 13.5 D Hct 40.0 MCV 82 MCH 27.6 MCHC 33.7 RDW 16.2 H Plt Count 273 MPV 8.7 Neut % (Auto) 65.7 Lymph % (Auto) 21.0 [place] % (Auto) 10.0 Eos % (Auto) 0.7 Baso % (Auto) 2.6 H Absolute Neuts (auto) 4.16 Absolute Lymphs (auto) 1.34 PT 11.5 H INR 1.1 APTT 26.1 Puncture Site Right radial pH 7.580 H pCO2 25.0 L pO2 79.0 L HCO3 23.4 Total CO2 24.2 Base Excess 2.8 H FiO2 % 21% Specimen Drawn By Si Sodium Potassium Chloride Carbon Dioxide Anion Gap BUN Creatinine Estimated GFR (MDRD) Glucose Calculated Osmolality Calcium Corrected Calcium Total Bilirubin AST ALT Alkaline Phosphatase Troponin I Total Protein Albumin 05/06/16 14:54 WBC RBC Hgb Hct MCV MCH MCHC RDW Plt Count MPV Neut % (Auto) Lymph % (Auto) [place] % (Auto) Eos % (Auto) Baso % (Auto) Absolute Neuts (auto) Absolute Lymphs (auto) PT INR APTT Puncture Site pH pCO2 pO2 HCO3 Total CO2 Base Excess FiO2 % Specimen Drawn By Sodium 142 Potassium 3.6 Chloride 103 Carbon Dioxide 25 Anion Gap 18 H BUN 14 Creatinine 0.90 Estimated GFR (MDRD) 59 L Glucose 93 Calculated Osmolality 274 Calcium 9.1 Corrected Calcium 9.4 Total Bilirubin 1.0 AST 28 ALT 21 Alkaline Phosphatase 107 Troponin I < 0.01 Total Protein 7.6 Albumin 3.7 - EKG EKG #1 EKG Time: 14:19 -: Yes EKG interpreted by me Rate: bpm: 79 Rhythm: NSR (WITH SINUS ARRYTHMIA) Block: RBBB Hypertrophy: None ST: Normal - Additional Information Additional Information: PT LIVES AT HOME AND HAS A FAMILY MEMBER STAYING WITH HER. HER SON IS PRESENT. PT TELLS ME SEVERAL TIMES THAT DR. GODOY WANTED HER ADMITTED UNTIL HER PACEMAKER IS REPLACED. PT DOES NOT MEET ADMISSION CRITERIA. PTS HR HAS REMAINED ABOUT 77 NSR WHILE HERE FOR 2 HOURS. FAMILY BELIEVES THAT PT SIMPLY WANTS TO STAY D/T ANXIETY. I SUPPORT THIS THEORY. Decision Time to Discharge: 15:53 - Departure Disposition: Home Condition: Stable Final Diagnosis: Cough Instructions: Upper Respiratory Infection (ED) Education/Counseling Given To: Patient, Family Member Education/Counseling Given Regarding: Diagnosis, Treatment, Follow Up Referrals: Anabel Tanner MD [Primary Care Provider] - One Week Prescriptions: Ondansetron HCl [Zofran] 4 mg PO Q6H PRN #20 tab PRN Reason: Nausea/Vomiting Additional Instructions: Drink sips of Gatorade every 2-3 minutes while awake. Do NOT drink large volumes of fluid at once. If you vomit, take the nausea-vomiting medicine prescribed, wait ~ 30 minutes, and restart the sipping process. Return to the Emergency Department if you think you are getting dehydrated, have persistent abdominal pain that is unrelenting, have worse or different symptoms, or any concerns.
[2016-05-06 16:17] VITALS: BP 128/73; PULSE 78
[2016-05-06 16:20] LABS: LEUKOCYTES/URINE NEG (NEGATIVE); NITRITE/URINE NEG (NEGATIVE); RBC/URINE 0-2 (0-5); URINE OCCULT BLOOD NEG (NEG/TRACE); WBC/URINE 0-2 (0-5)
== END 2016-05-06 16:16 | disposition home or self-care (01) ==
LOC: ED 13:55
DX: R05 Cough (principal)
CPT/HCPCS: 36415; 36600; 71010; 80053; 81001; 82803; 84484; 85025; 85610; 85730; 93005; 99283